=== PATIENT | female | born 1975 | race Caucasian/White ===

== ENCOUNTER 2017-07-18 15:35 | Emergency (ER) | payer BC ==
--- NOTE | 2017-07-18 18:38 | UC ---
Respiratory Complaint HPI - HPI Summary HPI Summary: 42 y/o female presents to the urgent care c/o productive cough, sore throat since 07/15/2017. Pt report one daughter was recently Dx with strep and the other daughter with influenza. She has been talking the Tamiflu prophylactically. However she wants to test for both strep and influenza. Pt states Sore Throat is 5/10 with swallowing, associated with mild CEDENO and body aches and dry cough. Pt denies fever, SOb, chest pain abdominal pain, N/V/D - History of Current Complaint Chief Complaint: UCRespiratory Stated Complaint: SORE THROAT/CHEST CONGESTION Time Seen by Provider: 07/18/17 18:37 Hx Obtained From: Patient Hx Last Menstrual Period: 06/20/17 Onset/Duration: Gradual Onset, Lasting Days - 3 days, Still Present Timing: Intermittent Episodes Severity Initially: Mild Severity Currently: Mild Pain Intensity: 5 Pain Scale Used: 0-10 Numeric Character: Cough: Nonproductive Aggravating Factors: Recumbent Position Alleviating Factors: OTC Meds Associated Signs And Symptoms: Positive: URI, Nasal Congestion. Negative: Fever , Chills - Risk Factors Pulmonary Embolism Risk Factors: Negative Cardiac Risk Factors: Negative Pseudomonas Risk Factors: Negative Tuberculosis Risk Factors: Negative - Allergies/Home Medications Allergies/Adverse Reactions: Allergies Allergy/AdvReac Type Severity Reaction Status Date / Time Dust Mite Extract Allergy Mild Sneezing Verified 11/09/16 10:07 Molds & Smuts Allergy Mild Congestion Verified 11/09/16 10:07 Pollen Extract Allergy Mild Congestion Verified 11/09/16 10:07 cats Allergy Mild Congestion Uncoded 11/09/16 10:07 dogs Allergy Mild Congestion Uncoded 11/09/16 10:07 trees Allergy Mild Congestion Uncoded 11/09/16 10:07 PMH/Surg Hx/FS Hx/Imm Hx Previously Healthy: Yes - Pt denies PMHX - Surgical History Surgical History: Yes Surgery Procedure, Year, and Place: 3 c-sections- KIDNEY stone surgery. BILATERAL FEET REPAIR-PINNED AND REMOVED-TENDON REPAIR ON LEFT FOOT. LASIK EYE FOR CORRECTIVE VISION - Family History Known Family History: Positive: None - Pt deneis FMHX - Social History Occupation: Employed Full-time Lives: With Family Alcohol Use: None Substance Use Type: None Smoking Status (MU): Never Smoked Tobacco - Immunization History Most Recent Influenza Vaccination: CURRENT Review of Systems Constitutional: Negative Skin: Negative Eyes: Negative ENT: Sore Throat, Nasal Discharge, Sinus Congestion Respiratory: Cough Cardiovascular: Negative Gastrointestinal: Negative Genitourinary: Negative Motor: Negative Neurovascular: Negative Musculoskeletal: Negative Neurological: Negative Psychological: Negative Is Patient Immunocompromised?: No All Other Systems Reviewed And Are Negative: Yes Physical Exam Triage Information Reviewed: Yes Vital Signs: Initial Vital Signs Temp 98.2 F 07/18/17 17:53 Pulse 71 07/18/17 17:53 Resp 18 07/18/17 17:53 BP 118/73 07/18/17 17:53 Pulse Ox 100 07/18/17 17:53 - Additional Comments VITAL SIGNS: Reviewed. GENERAL: Patient is a well developed and nourished female who is sitting comfortable in the examining table. Patient is not in any acute respiratory distress. HEAD AND FACE: No signs of trauma. No ecchymosis, hematomas or skull depressions. No sinus tenderness. edematous erythematous nasal mucosa with yellowish discharge, EYES: PERRLA, EOMI x 2, No injected conjunctiva, clear watery eyes, no nystagmus. No photophobia. EARS: Hearing grossly intact. Ear canals and tympanic membranes are within normal limits. MOUTH: Positive pharynx with erythema, no exudates,no palatal petechiae. no B/ L tonsillar enlargement Uvula in midline. NECK: Supple, trachea is midline, Positive anterior cervical lymphadenopathy, no JVD, no carotid bruit, no c-spine tenderness, neck with full ROM. No meningeal signs, no Kernig's or brudzinskis signs. CHEST: Symmetric, no tenderness at palpation LUNGS: Clear to auscultation bilaterally. No wheezing or crackles. CVS: Regular rate and rhythm, S1 and S2 present, no murmurs or gallops appreciated. ABDOMEN: Soft, non-tender. No signs of distention. No rebound no guarding, and no masses palpated. Bowel sounds are normal. EXTREMITIES: FROM in all major joints, no edema, no cyanosis or clubbing. NEURO: Alert and oriented x 3. No acute neurological deficits. Speech is normal and follows commands. SKIN: Dry and warm UC Diagnostic Evaluation - Laboratory O2 Sat by Pulse Oximetry: 100 Respiratory Course/Dx - Course Course Of Treatment: 42 y/o female presents to the urgent care c/o productive cough, sore throat since 07/15/2017. Pt report one daughter was recently Dx with strep and the other daughter with influenza. She has been talking the Tamiflu prophylactically. However she wants to test for both strep and influenza. Pt states Sore Throat is 5/10 with swallowing, associated with mild CEDENO and body aches and dry cough. Pt denies fever, SOb, chest pain abdominal pain, N/V/D. Hx obtained. Pt with URI on examination. Rapid strep ordered, result: negative.Influenza A&B ordered: result: negative.Pt advised to continue taking Tamiflu and Rx Tessalon PO to alleviate symptoms. Pt advised to rest, increase fluid intake, eat well and avoid strenuous exercise. If symptoms do not improve or worsen advised to return to the urgent care or f/u with her PCP for further evaluation and treatment. Pt understood and agreed with plan of care. - Differential Dx/Diagnosis Differential Diagnosis/HQI/PQRI: Bronchitis, Influenza, Laryngitis, Lower Resp Infection, Sinusitis, Other - pharyngitis Provider Diagnoses: 1- Upper respiratory infection. 2-Cough Discharge - Discharge Plan Condition: Stable Disposition: HOME Prescriptions: Benzonatate CAP* [Tessalon 100 MG CAP*] 100 mg PO TID #21 cap Patient Education Materials: Upper Respiratory Infection (ED) Referrals: Marshall Alfonso MD [Primary Care Provider] - 3 Days Additional Instructions: 1- finish the Tamiflu PO and Tessalon tabs PO to alleviate cough. encourage hand washing and wear a mask since your children have strep and influenza. 2-Please take ibuprofen PO q6-8hrs prn for sore throat as instructed after meals to alleviate pain and swelling. Increase fluid intake, eat well, rest and avoid strenuous exercise 3-If symptoms do not improve or worsen please return to the urgent care or f/u with your PCP for further evaluation and treatment.
[2017-07-18 19:19] VITALS: BP 114/79
== END 2017-07-18 19:19 | disposition home or self-care (01) ==
LOC: UCCORT 15:35
DX: J06.9 Acute upper respiratory infection, unspecified (principal); R05 Cough; Z20.828 Contact with and (suspected) exposure to other viral communicable diseases
CPT/HCPCS: 87502; 87651; 99212; G0463

== ENCOUNTER 2017-08-16 20:55 | Emergency (ER) | payer BC ==
[2017-08-16 22:08] VITALS: BP 117/70
--- NOTE | 2017-08-16 22:40 | UC ---
Throat Pain/Nasal Terry HPI - HPI Summary HPI Summary: Pt with sore throat increasing x 2 days no nausea, vomiting. 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 no fever, chill, rash no hairston, vision change tactile temp no drooling Pt's medications reviewed this visit - History of Current Complaint Chief Complaint: UCGeneralIllness Stated Complaint: SORE THROAT Time Seen by Provider: 08/16/17 22:36 Hx Obtained From: Patient Hx Last Menstrual Period: PRESENT ?: No Onset/Duration: Gradual Onset, Lasting Days Pain Intensity: 2 Associated Signs & Symptoms: Positive: Fever - Allergies/Home Medications Allergies/Adverse Reactions: Allergies Allergy/AdvReac Type Severity Reaction Status Date / Time MS Dust Mite Extract Allergy Mild Sneezing Verified 08/16/17 22:08 [Dust Mite Extract] MS Molds & Smuts Allergy Mild Congestion Verified 08/16/17 22:08 [Molds & Smuts] MS Pollen Extract Allergy Mild Congestion Verified 08/16/17 22:08 [Pollen Extract] cats Allergy Mild Congestion Uncoded 08/16/17 22:08 dogs Allergy Mild Congestion Uncoded 08/16/17 22:08 trees Allergy Mild Congestion Uncoded 08/16/17 22:08 PMH/Surg Hx/FS Hx/Imm Hx Previously Healthy: Yes - Surgical History Surgical History: Yes Surgery Procedure, Year, and Place: 3 c-sections- KIDNEY stone surgery. BILATERAL FEET REPAIR-PINNED AND REMOVED-TENDON REPAIR ON LEFT FOOT. LASIK EYE FOR CORRECTIVE VISION - Family History Known Family History: Positive: None - Pt deneis FMHX - Social History Occupation: Employed Full-time Lives: With Family Alcohol Use: None Substance Use Type: None Smoking Status (MU): Never Smoked Tobacco - Immunization History Most Recent Influenza Vaccination: CURRENT 2016/2017 Review of Systems Constitutional: Fever Skin: Negative Eyes: Negative ENT: Sore Throat Respiratory: Negative Cardiovascular: Negative Gastrointestinal: Negative Genitourinary: Negative Motor: Negative Neurovascular: Negative Musculoskeletal: Negative Neurological: Negative Psychological: Negative All Other Systems Reviewed And Are Negative: Yes Physical Exam Triage Information Reviewed: Yes Appearance: Well-Appearing, No Pain Distress, Well-Nourished Vital Signs: Initial Vital Signs Temp 97.8 F 08/16/17 22:05 Pulse 64 08/16/17 22:05 Resp 18 08/16/17 22:05 BP 117/70 08/16/17 22:05 Pulse Ox 100 08/16/17 22:05 Eyes: Positive: Conjunctiva Clear ENT: Positive: Hearing grossly normal, Pharyngeal erythema, TMs normal, Uvula midline Dental Exam: Normal Neck exam: Normal Neck: Positive: Supple, Nontender Respiratory Exam: Normal Respiratory: Positive: Chest non-tender, Lungs clear, Normal breath sounds, No respiratory distress, No accessory muscle use Cardiovascular Exam: Normal Cardiovascular: Positive: RRR, No Murmur, Pulses Normal Abdominal Exam: Normal Abdomen Description: Positive: Nontender, No Organomegaly, Soft Musculoskeletal Exam: Normal Musculoskeletal: Positive: Strength Intact Neurological Exam: Normal Neurological: Positive: Alert Psychological Exam: Normal Skin Exam: Normal Throat Pain/Nasal Course/Dx - Course Assessment/Plan: Pt with painful throat, painful swallowing progressive. + strep exposure. + strep here. abx. gargle. motrin/apap. hydrate. pt gets yeast infection with abx - will give rx diflucan. return precautions - Differential Dx/Diagnosis Provider Diagnoses: strep pharyngitis Discharge - Discharge Plan Condition: Stable Disposition: HOME Prescriptions: Amoxicillin PO (*) [Amoxicillin 875 MG (*)] 875 mg PO BID #18 tab Fluconazole 150 MG (NF) [Diflucan 150 mg (NF)] 150 mg PO ONCE PRN #1 tab PRN Reason: yeast infection Patient Education Materials: Strep Throat (ED) Referrals: Marshall Alfonso MD [Primary Care Provider] - Additional Instructions: - Stay well hydrated. Drink plenty of non-alcoholic, non-caffinated beverages. - Take Tylenol every 6 hours for pain or fever. Take with food. Do NOT take for more than 4-5 days. -cold foods (popsicle, jello, apple sauce) may be soothing to your throat - okay to gargle and spit with warm salt water, 2-3 times a day - These infections are spread by secretions - do NOT share eating or drinking utensils - clean items you share with other people such as cell phones, computer mouse, TV remote, computer tablets, etc. After you have taken antibiotics or 3 days, change your toothbrush and your pillowcase. - get plenty of restful sleep - humidify the air in the room where you sleep - boil water, run a hot steam shower, vaporizer, cups of water by heat register - okay to take over the counter decongestant and cough medication - you have been given a prescription for a yeast infection - okay to take as needed - contact return here or go to the emergency department with questions or concerns
[2017-08-16] MEDS ORDERED: Amoxicillin PO (*) 500 MG CAP PO ONE ×2 (22:47)
== END 2017-08-16 23:03 | disposition home or self-care (01) ==
LOC: UCCORT 20:55
DX: J02.0 Streptococcal pharyngitis (principal)
CPT/HCPCS: 87651; 99212; A9270-GY; G0463

== ENCOUNTER 2018-12-16 12:50 | Emergency (ER) | payer BC, OTHER ==
[2018-12-16 13:35] VITALS: BP 119/73
--- NOTE | 2018-12-16 13:47 | UC ---
Lower Extremity/Ankle HPI - HPI Summary HPI Summary: c/o R lower leg pain that started . States "just doesn't feel right". Full ROM, but when walking feels like it is not right. - History of Current Complaint Chief Complaint: UCLowerExtremity Stated Complaint: RIGHT ANKLE CONCERN Time Seen by Provider: 12/16/18 13:29 Hx Obtained From: Patient Hx Last Menstrual Period: 12/12/18 ?: No Onset/Duration: Sudden Onset, Lasting Days Severity Initially: Mild Severity Currently: Mild Pain Intensity: 0 Aggravating Factor(s): Standing, Ambulation Alleviating Factor(s): Rest Able to Bear Weight: Yes - Allergies/Home Medications Allergies/Adverse Reactions: Allergies Allergy/AdvReac Type Severity Reaction Status Date / Time mold Allergy Congestion Verified 12/16/18 13:30 pollen extracts Allergy Congestion Verified 12/16/18 13:30 cats Allergy Mild Congestion Uncoded 08/16/17 22:08 dogs Allergy Mild Congestion Uncoded 08/16/17 22:08 trees Allergy Mild Congestion Uncoded 08/16/17 22:08 dust mites Allergy Sneezing Uncoded 12/16/18 13:30 PMH/Surg Hx/FS Hx/Imm Hx Previously Healthy: Yes - Surgical History Surgical History: Yes Surgery Procedure, Year, and Place: 3 c-sections- KIDNEY stone surgery. BILATERAL FEET REPAIR-PINNED AND REMOVED-TENDON REPAIR ON LEFT FOOT. LASIK EYE FOR CORRECTIVE VISION - Family History Known Family History: Negative: Cardiac Disease, Hypertension - Social History Alcohol Use: None Substance Use Type: None Smoking Status (MU): Never Smoked Tobacco - Immunization History Most Recent Influenza Vaccination: CURRENT 2016/2017 Review of Systems All Other Systems Reviewed And Are Negative: Yes Musculoskeletal: Positive: Myalgia Is Patient Immunocompromised?: No Physical Exam Triage Information Reviewed: Yes Appearance: Well-Appearing, Well-Nourished, Pain Distress Vital Signs: Initial Vital Signs Temp 97.6 F 12/16/18 13:30 Pulse 66 12/16/18 13:30 Resp 15 12/16/18 13:30 BP 119/73 12/16/18 13:30 Pulse Ox 100 12/16/18 13:30 Vital Signs Reviewed: Yes Eye Exam: Normal ENT Exam: Normal Dental Exam: Normal Neck exam: Normal Respiratory Exam: Normal Cardiovascular Exam: Normal Abdominal Exam: Normal Bowel Sounds: Positive: Present Musculoskeletal: Positive: Strength Intact, ROM Intact, No Edema, Other: - palpable tenderness on the anteromedial aspect of lower right leg, no calf tenderness, no swelling or redness Neurological Exam: Normal Psychological Exam: Normal Skin Exam: Normal Lower Extremity Course/Dx - Course Course Of Treatment: hx obtained, exam performed ,meds reviewed, xray obtained and negative for fracture - Differential Dx/Diagnosis Differential Diagnosis/HQI/PQRI: Contusion, Fracture (Closed), Sprain, Strain Provider Diagnosis: Strain of tendon of lower extremity Discharge - Sign-Out/Discharge Documenting (check all that apply): Patient Departure All imaging exams completed and their final reports reviewed: Yes - Discharge Plan Condition: Stable Disposition: HOME Patient Education Materials: Muscle Strain (DC) Referrals: Marshall Alfonso MD [Primary Care Provider] - Jimmy Silveira MD [Medical Doctor] - Additional Instructions: 1. your xray was negative for any fracture 2. I recommend, heating with a heat pad or warm water soak and doing some deep massage of the ankle and lower leg. 3. Stretch the ankle in all directions and rest for the next 2 days 4. Ibuprofen of anti inflammatory affects 5. If not improving in the next week with treatment, follow up with Dr margy Mcintyre Disposition and Condition Condition: STABLE Disposition: Home
== END 2018-12-16 14:11 | disposition home or self-care (01) ==
LOC: UCCORT 12:50
DX: S86.911A Strain of unspecified muscle(s) and tendon(s) at lower leg level, right leg, initial encounter (principal); X58.XXXA Exposure to other specified factors, initial encounter; Y92.9 Unspecified place or not applicable
CPT/HCPCS: 99211; G0463

== ENCOUNTER 2019-05-30 12:00 | Emergency (ER) | payer BC ==
--- OUTSIDE RECORDS SUMMARY | 2019-05-30 12:44 | XMS REPORT | Continuity of Care Document ---
:1975 External Reference #:[id number] Author Name NOA Olivas (transmitted by agent of provider Lorena Rush) Address [address] [place] [address] Care Team Providers Name Role Phone Elliot Monk MD - Orthopaedic Care Team Information Finisher Tailor Apprentice [phone] Surgery Mary Muller PA - Physician Sandfill Operator Surface Care Team Information Finisher Tailor Apprentice [phone] Problems Active Problems Provider Date Kidney stone NOA Olivas Onset: 02/01/2019 Microscopic hematuria NOA Olivas Onset: 02/01/2019 Noncompliance with medication regimen NAO Olivas Onset: 02/01/2019 H/O: section NOA Olivas Onset: 02/01/2019 H/O: tubal ligation NOA Olivas Onset: 02/01/2019 Tooth extraction NOA Olivas Onset: 02/01/2019 Tonsillitis NOA Olivas Onset: 02/01/2019 History of alcohol abuse NOA Olivas Onset: 02/01/2019 Right upper quadrant pain NOA Olivas Onset: 02/01/2019 Social History Type Date Description Comments Sex Unknown ETOH Use past History of Etoh & Barbituate use Tobacco Use Start: Unknown Patient has never smoked Smoking Status Reviewed: 04/23/19 Patient has never smoked Exercise Type/Frequency Exercises sporadically Allergies, Adverse Reactions, Alerts Description No Known Drug Allergies Medications Active Medications SIG Qnty Indications Ordering Provider Date Meclizine HCL one pill twice 30tabs R42 Marshall 04/23/2019 12.5mg daily as needed MD Naty Tablets for vertigo History Medications No Active Medications Unknown 02/01/2019 - 04/23/2019 Immunizations CPT Code Status Date Vaccine Reaction Lot # [id number] Given 02/01/2019 Tdap - risk & benefits Tdap H54EX Tetanus/Diptheria/Acel discussed private lular Pertussis 62811 Given 05/01/2018 Influenza Virus Vaccine, Quadrivalent, Split, Preservative Free 24295 Given 03/19/2014 Measles Mumps And Rubella MMR 55845 Given 04/20/2010 Influenza Virus 3Yrs & Over 55012 Given 04/02/2009 Influenza Virus 3Yrs & Over 13843 Given 08/21/2006 Tetanus And Diptheria (Td) For Adult Use Preservative Free Vital Signs Date Vital Result Comment 04/23/2019 3:42pm Weight 205.44 lb BP Systolic Sitting 120 mmHg BP Diastolic Sitting 70 mmHg 02/01/2019 2:31pm Height 66.8 inches 5'6.80" Weight 204.19 lb BP Systolic Sitting 110 mmHg BP Diastolic Sitting 50 mmHg BMI (Body Mass Index) 32.2 kg/m2 Results Description No Information Available Procedures Date Code Description Status 07/04/2018 10857236 Mammogram Completed 06/03/2009 11333061 Colonoscopy Completed Medical Devices Description No Information Available Encounters Type Date Location Provider Dx Diagnosis Office Visit 02/01/2019 [facility] NOA Olivas Z00.01 Encounter for 2:30p general adult medical exam w abnormal findings Z23 Encounter for immunization Assessments Date Code Description Provider 04/23/2019 R42 Dizziness and giddiness NOA Olivas 04/23/2019 F43.0 Acute stress reaction NOA Olivas 02/01/2019 Z00.01 Encounter for general adult medical examination with NOA Olivas abnormal findings 02/01/2019 Z23 Encounter for immunization NOA Olivas Plan of Treatment 04/23/2019 - CASSIUS Olivas Dizziness and giddinessNew Medication:Meclizine HCL 12.5 mg - one pill twice daily as needed for [id number] Acute stress reaction Functional Status Description No Information Available Mental Status Description No Information Available Referrals Description No Information Available
--- NOTE | 2019-05-30 13:43 | UC ---
Eye Complaint HPI - HPI Summary HPI Summary: 44-year-old female who put her contact in her left eye this morning and then she thought it fell out but she was unable to find it. She noticed that her left pupil was dilated this morning prior to putting in her contact. She denies any vision changes. She has had intermittent vertigo for greater than 1 month but states she does not have vertigo today and it's been improving and did not have it very much this week. She did follow-up with her primary care provider who referred her to an ear nose and throat physician but she has not had that appointment yet. She started cross fit one month ago which has not worsened the vertigo however she states at times if she bends over quickly to lift something she will have mild vertigo. She denies any vomiting. No injury to her head. No chronic health problems. She is not diabetic nor does she have hypertension. She denies any feeling of loss of balance. - History of Current Complaint Chief Complaint: UCEye Stated Complaint: LEFT EYE COMPLAINT Time Seen by Provider: 05/30/19 13:01 Hx Obtained From: Patient Hx Last Menstrual Period: 05/12/19; hx tubal ligation ?: No Onset/Duration: Gradual Onset - Patient noticed the dilated pupil this morning at 10 AM. She is unsure whether her contact lens is in place or not. Timing: Constant Severity Initially: Mild Severity Currently: Mild Pain Intensity: 0 Location of Injury: Other - No injury Aggravating Factor(s): Nothing, Other - Patient is unsure whether the contact lenses in place. Alleviating Factor(s): Nothing Associated Signs And Symptoms: Positive: Negative - Allergies/Home Medications Allergies/Adverse Reactions: Allergies Allergy/AdvReac Type Severity Reaction Status Date / Time mold Allergy Congestion Verified 05/30/19 13:40 pollen extracts Allergy Congestion Verified 05/30/19 13:40 cats Allergy Mild Congestion Uncoded 05/30/19 13:40 dogs Allergy Mild Congestion Uncoded 05/30/19 13:40 trees Allergy Mild Congestion Uncoded 05/30/19 13:40 dust mites Allergy Sneezing Uncoded 05/30/19 13:40 Home Medications: Home Medications NK [No Home Medications Reported] 05/30/19 [History Confirmed 05/30/19] PMH/Surg Hx/FS Hx/Imm Hx Previously Healthy: Yes - patient has had intermittent vertigo greater than a month and a half - Surgical History Surgical History: Yes Surgery Procedure, Year, and Place: 3 c-sections- KIDNEY stone surgery. BILATERAL FEET REPAIR-PINNED AND REMOVED-TENDON REPAIR ON LEFT FOOT. LASIK EYE FOR CORRECTIVE VISION 2001 - Family History Known Family History: Negative: Cardiac Disease, Hypertension - Social History Alcohol Use: None Substance Use Type: None Smoking Status (MU): Never Smoked Tobacco - Immunization History Most Recent Influenza Vaccination: CURRENT Review of Systems All Other Systems Reviewed And Are Negative: Yes Eyes: Positive: Other - Patient is unsure whether her contact lense is in place. She noted her left pupil dilated this morning. She denies any changes in vision. Neurological: Positive: Other - Patient has had intermittent vertigo greater than 1 month.. Negative: Headache, Weakness, Paresthesia Is Patient Immunocompromised?: No Physical Exam Triage Information Reviewed: Yes Appearance: Well-Appearing, No Pain Distress, Well-Nourished Vital Signs: Initial Vital Signs Temp 97.4 F 05/30/19 12:44 Pulse 71 05/30/19 12:44 Resp 16 05/30/19 12:44 BP 123/74 05/30/19 12:44 Pulse Ox 100 05/30/19 12:44 Vital Signs Reviewed: Yes Eyes: Positive: Conjunctiva Clear, Other: - The contact lens is in place in the left eye. The left pupil is dilated and mildly reactive to light. EOMI. Fundascopic exam grossly normal (Performed by Dr. Kuhn) right pupil reactive to light. No lid lag and no evidence of ptosis. ENT: Positive: Hearing grossly normal, Pharynx normal, TMs normal, Uvula midline Musculoskeletal Exam: Normal Neurological: Positive: Alert, Muscle Tone Normal, Other: - Good finger to nose bilaterally, Romberg: Mildly positive, good heel-to-toe. Psychological Exam: Normal Skin Exam: Normal Eye Complaint Course/Dx - Course Course Of Treatment: CT Brain with and without contrast:FINDINGS: The ventricles, cisterns and sulci are within normal limits. No significant focal abnormality or mass effect is seen. There is no evidence for hemorrhage. There is opacification of a couple ethmoid air cells. The remaining visualized paranasal sinuses and mastoid air cells appear clear. IMPRESSION: NO EVIDENCE FOR ACUTE INTRACRANIAL ABNORMALITY. DEPENDING AND THE PATIENT'S CLINICAL CIRCUMSTANCES CONSIDER MR IMAGING FOR FURTHER EVALUATION. The patient has been comfortable here. I did advise her to call her primary care provider to make an appointment to be seen and at the recommendation of the radiologist possibly the need for an MRI. Patient is agreeable to this plan of action. She is to wear glasses until she is seen by her primary care provider. It may be that something in her contact lenses or solution could be causing this and I want her to see the pupil goes back to normal with her just wearing glasses. The left contact lens was visualized in place. - Differential Dx/Diagnosis Provider Diagnosis: Dilated pupil Discharge ED - Sign-Out/Discharge Documenting (check all that apply): Patient Departure All imaging exams completed and their final reports reviewed: Yes - Discharge Plan Condition: Good Disposition: HOME Referrals: Marshall Alfonso MD [Primary Care Provider] - Additional Instructions: Definite follow-up with Dr. Alfonso by telephone today to make an appointment for recheck. It is possible that he may feel you should have an MRI as suggested by the radiologist. Go to the emergency room for any worsening symptoms of vertigo, headache, loss of balance. - Billing Disposition and Condition Condition: GOOD Disposition: Home
[2019-05-30] MEDS ORDERED: Iohexol 300* (CONTRAST) 10 ML SDV IV ONE (13:44)
[2019-05-30 15:14] VITALS: BP 122/69
== END 2019-05-30 15:38 | disposition home or self-care (01) ==
LOC: UCCORT 12:00
DX: H57.04 Mydriasis (principal); R42 Dizziness and giddiness; Z91.09 Other allergy status, other than to drugs and biological substances
CPT/HCPCS: 70470; 99213; G0463; Q9967